=== PATIENT | female | born 1955 | race Two or more races ===

== ENCOUNTER 2017-08-13 10:08 | Emergency (ER) | payer MEDICAID, OTHER ==
[~2017-08-13] VITALS: Ht 167.6 cm; Wt 65.0 kg
[2017-08-13] MEDS ORDERED: FURO-152 PO (10:15)
[2017-08-13 11:10] LABS: CHLORIDE 104 mEq/L (98-107)
[2017-08-13 11:18] LABS: INR 1.2; PARTIAL THROMBOPLASTIN TIME 24.7 sec (23.4-31.0); PROTHROMBIN TIME 12.2 sec (9.4-11.6)
[2017-08-13] MEDS ORDERED: ACETAMINOPHEN 325MG TABLET PO ONE (11:30)
[2017-08-13 11:55] LABS: HEMATOCRIT. 30.3 % (36.0-48.0); HEMOGLOBIN. 8.9 g/dL (12.0-16.0); MEAN CORPUSCULAR HEMOGLOBIN 17.5 pg (28.0-32.0); MEAN CORPUSCULAR VOLUME 59.7 fL (81.0-99.0); RED BLOOD CELL COUNT 5.07 mill/uL (4.2-5.4); RED CELL DISTRIBUTION WIDTH 24.5 % (11.6-14.6)
[2017-08-13 12:26] LABS: NUCLEATED RED BLOOD CELLS 1 /100 WBC
[2017-08-13 12:28] LABS: PLATELET ESTIMATE NORMAL
[2017-08-13 12:30] LABS: PLATELET 197 x1000/uL (130-400)
[2017-08-13 16:27] VITALS: BP 140/77
== END 2017-08-13 16:37 | disposition home or self-care (01) ==
LOC: ER 10:26
DX: R06.02 Shortness of breath (principal); I11.0 Hypertensive heart disease with heart failure; I50.9 Heart failure, unspecified; E11.9 Type 2 diabetes mellitus without complications
CPT/HCPCS: 36415; 71045; 80053; 83690; 83880; 84484; 85025; 85610; 85730; 93005; 99285; Z7610